=== PATIENT | male | born 1960 | race Caucasian/White ===

== ENCOUNTER 2017-12-21 20:11 | Emergency (ER) | payer SELFPAY ==
[2017-12-21] MEDS ORDERED: AMIODARONE HCL 150 MG in DEXTROSE 5%-WATER 100 ML IV ONE (20:19)
[2017-12-21] MEDS ORDERED: DEXTROSE 5%-WATER 500 ML with AMIODARONE HCL 900 MG IV PRN ×2 (20:28)
[2017-12-21 20:40] LABS: ABSOLUTE BASOPHILS # (AUTO) 0.1 10^3/uL (0.0-0.2); ABSOLUTE EOSINOPHILS # (AUTO) 0.1 10^3/uL (0.0-0.6); ABSOLUTE LYMPHOCYTES (AUTO) 2.7 10^3/uL (0.5-4.7); ABSOLUTE MONOCYTES (AUTO) 0.5 10^3/uL (0.1-1.4); ABSOLUTE NEUT (AUTO) 5.4 10^3/uL (1.7-8.2); BASOPHILS % (AUTO) 1.4 % (0-2); EOSINOPHILS % (AUTO) 0.9 % (0-6); HEMATOCRIT 49.4 % (37.9-51.0); LYMPHOCYTES % (AUTO) 30.3 % (13-45); MEAN CORPUSCULAR HEMOGLOBIN 29.8 pg (27.0-33.4); MEAN CORPUSCULAR HGB CONC 34.3 g/dL (32.0-36.0); MEAN CORPUSCULAR VOLUME 87 fl (80-97); MONOCYTES % (AUTO) 5.9 % (3-13); PLATELET COUNT 143 10^3/uL (150-450); RED BLOOD COUNT 5.69 10^6/uL (4.35-5.55); RED CELL DISTRIBUTION WIDTH 14.4 % (11.5-14.0); SEGMENTED NEUTROPHILS % (AUTO) 61.5 % (42-78); TOTAL CELLS COUNTED % (AUTO) 100 %; WHITE BLOOD COUNT 8.8 10^3/uL (4.0-10.5)
[2017-12-21] MEDS ORDERED: AMIODARONE HCL INJ 150 MG/3 ML VIAL IV PRN (20:47)
[2017-12-21 20:51] LABS: INTERNATIONAL RATION (INR) 0.87; PROTHROMBIN TIME 12.5 SEC (11.4-15.4)
[2017-12-21 20:54] LABS: ALANINE AMINOTRANSFERASE 58 U/L (21-72); ALBUMIN 4.3 g/dL (3.5-5.0); ALKALINE PHOSPHATASE 102 U/L (38-126); ANION GAP 13 (5-19); ASPARTATE AMINO TRANSFERASE 70 U/L (17-59); BILIRUBIN,DIRECT 0.5 mg/dL (0.0-0.4); BILIRUBIN,TOTAL 0.9 mg/dL (0.2-1.3); BLOOD UREA NITROGEN 13 mg/dL (7-20); CALCIUM 9.8 mg/dL (8.4-10.2); CARBON DIOXIDE 24 mmol/L (22-30); CHLORIDE 103 mmol/L (98-107); CREATINE KINASE 264 U/L (55-170); GLUCOSE 136 mg/dL (75-110); POTASSIUM 3.8 mmol/L (3.6-5.0); SODIUM 139.6 mmol/L (137-145); TOTAL PROTEIN 7.5 g/dL (6.3-8.2)
[2017-12-21 21:06] LABS: CREATINE KINASE MB 11.5 ng/mL (<4.55)
--- NOTE | 2017-12-21 21:08 | RADIOLOGY REPORT (SQ) ---
EXAM DESCRIPTION: CHEST SINGLE VIEW COMPLETED DATE/TIME: 12/21/2017 8:35 pm REASON FOR STUDY: cp COMPARISON: None. EXAM PARAMETERS: NUMBER OF VIEWS: One view. TECHNIQUE: Single frontal radiographic view of the chest acquired. RADIATION DOSE: NA LIMITATIONS: None. FINDINGS: LUNGS AND PLEURA: No opacities, masses or pneumothorax. No pleural effusion. MEDIASTINUM AND HILAR STRUCTURES: Age-appropriate contour. HEART AND VASCULAR STRUCTURES: Heart normal in size. Normal vasculature. BONES: No acute findings. HARDWARE: None in the chest. OTHER: No other significant finding. IMPRESSION: NO ACUTE RADIOGRAPHIC FINDING IN THE CHEST. TECHNICAL DOCUMENTATION: JOB ID: [id number] [place]-[id number] 2010 [email or web address]- All Rights Reserved Reading location - IP/workstation name: [email or web address]
[2017-12-21 21:10] LABS: TROPONIN I 0.288 ng/mL
[2017-12-21] MEDS ORDERED: METOPROLOL TARTRATE PF/INJ 5 MG/5 ML SDV IV ONE (21:14)
[2017-12-21] MEDS ORDERED: NITROGLYCERIN 2% OINTMENT 1 GM PACKET TP ONE (21:22)
[2017-12-21] MEDS ORDERED: AMIODARONE HCL INJ 150 MG/3 ML VIAL IV ONE ×2 (21:30→21:37)
[2017-12-21] MEDS ORDERED: CLOPIDOGREL BISULFATE 300 MG TABLET ONE (21:46)
[2017-12-21] MEDS ORDERED: ENOXAPARIN SODIUM INJ 120 MG/0.8 ML DISP.SYRIN SUBCUT SCH (22:15)
--- NOTE | 2017-12-21 22:25 | ER Document Report ---
ED General - General Chief Complaint: Chest Pain Stated Complaint: CHEST DISCOMFORT Time Seen by Provider: 12/21/17 20:19 Mode of Arrival: Stretcher Information source: Patient TRAVEL OUTSIDE OF THE [place] IN LAST 30 DAYS: No - HPI Patient complains to provider of: Chest pain Onset: This afternoon Onset/Duration: Gradual Quality of pain: Fullness - Chest no radiation shortness of breath and diaphoresis accompanied with Severity: Moderate Associated symptoms: Chest pain, Nausea, Shortness of breath, Sweating Exacerbated by: Denies Relieved by: Other - Nitro and aspirin without relief Recently seen / treated by doctor: No - Has not seen a physician in over a year Notes: 57-year-old male was doing yard work putting out patio whilst today when he became fatigued. He went into the house and stated shortly thereafter he developed chest pain and some shortness of breath and diaphoresis. He states he took an old nitro as well as aspirin without really any relief. He does have a history of coronary artery disease with a stent placed. He has not seen a physician over a year. His states since he moved here from [place] he has not gotten a doctor. Patient smokes at least a pack a day. No alcohol. - Related Data Allergies/Adverse Reactions: No Known Allergies Allergy (Unverified 12/21/17 20:29) Past Medical History - General Information source: Patient, Relative - - Social History Smoking Status: Current Every Day Smoker Chew tobacco use (# tins/day): No Frequency of alcohol use: None Drug Abuse: None Lives with: Family Family History: Hypertension Patient has suicidal ideation: No Patient has homicidal ideation: No - Past Medical History Cardiac Medical History: Reports: Hx Heart Attack - x2 99-03, Hx Hypertension Pulmonary Medical History: Reports: None EENT Medical History: Reports: None Neurological Medical History: Reports: None Endocrine Medical History: Reports: None Renal/ Medical History: Reports: None. Denies: Hx Peritoneal Dialysis Malignancy Medical History: Reports None GI Medical History: Reports: None Musculoskeltal Medical History: Reports None Skin Medical History: Reports None Psychiatric Medical History: Reports: None Past Surgical History: Reports: Hx Abdominal Surgery - hernia repair x3, diverticulitis, Hx Coronary Stent - Immunizations History of Influenza Vaccine for 07/2017 - 12/2017 Season: No Review of Systems - Review of Systems Constitutional: No symptoms reported EENT: No symptoms reported Cardiovascular: See HPI Respiratory: See HPI Gastrointestinal: See HPI Genitourinary: No symptoms reported Male Genitourinary: No symptoms reported Musculoskeletal: No symptoms reported Skin: No symptoms reported Hematologic/Lymphatic: No symptoms reported Neurological/Psychological: No symptoms reported Physical Exam - Vital signs Vitals: Resp Pulse Ox 29 H 98 12/21/17 20:13 12/21/17 20:13 - Notes Notes: PHYSICAL EXAMINATION: GENERAL: Pale, obese male in no acute distress HEAD: Atraumatic, normocephalic. EYES: Pupils equal round and reactive to light, extraocular movements intact, sclera anicteric, conjunctiva are normal. ENT: Nares patent, oropharynx clear without exudates. Moist mucous membranes. NECK: Normal range of motion, supple without lymphadenopathy LUNGS: Breath sounds clear to auscultation bilaterally and equal. No wheezes rales or rhonchi. HEART: Regular rate and rhythm without murmurs ABDOMEN: obese, soft, nontender, nondistended abdomen. No guarding, no rebound. No masses appreciated. Patient has a large area of scarring inferior to his umbilicus where he had multiple abdominal surgeries. Musculoskeletal: Normal range of motion, no pitting or edema. No cyanosis. NEUROLOGICAL: Cranial nerves grossly intact. Normal speech. Normal sensory, motor exams PSYCH: Normal mood, normal affect. SKIN: Warm, Dry, normal turgor, no rashes or lesions noted. Course - Re-evaluation Re-evalutation: The patient's arrival to the emergency department, female EMS worker approached and asked me to please go outside into the ambulance. After the ambulance the patient was sitting up mentating in the stretcher. The radiation monitor appeared to be V. tach. Patient's blood pressure was fine. There was an EMS worker in the truck. I did tell him that since the patient was mentating to just expediently transfer him into the emergency department. At that point he had given Cardizem. Upon arrival into the emergency department which was less than a minute later he did convert to sinus rhythm. 12/21/17 22:21 Called [facility] I call divided for transfer. There are no cardiac beds. I did call [facility]. I spoke to Josie and the transfer center coordinator. She stated she would have cardiology call me back. At that point I was called into the patient's room for heart rate of 212. Patient was in V. tach sitting up in the side of the bed. He looked pale grayish and mildly diaphoretic. He stated he was having chest pain. I did lay him back in the bed. He was given 150 mg IV bolus amiodarone. His heart rate went into a wide complex bigeminy. At that point I did give Lopressor 5 mg IV patient converted to sinus rhythm m at a rate of 86 bpm with T-wave inversions inferiorly and laterally no acute ST elevation. She was given Lovenox, Plavix, Nitropaste. He was accepted by Dr. Derek Jacinto who called me back. Patient's heart rate is now 74 his oxygenation is 100 on 2 L, blood pressure is 140/94. 12/21/17 22:29 12/21/17 22:30 Labs- All tests 24 hr 12/21/17 12/21/17 12/21/17 20:25 20:25 20:25 WBC 8.8 RBC 5.69 H Hgb 17.0 Hct 49.4 MCV 87 MCH 29.8 MCHC 34.3 RDW 14.4 H Plt Count 143 L Seg Neutrophils % 61.5 Lymphocytes % 30.3 Monocytes % 5.9 Eosinophils % 0.9 Basophils % 1.4 Absolute Neutrophils 5.4 Absolute Lymphocytes 2.7 Absolute Monocytes 0.5 Absolute Eosinophils 0.1 Absolute Basophils 0.1 PT 12.5 INR 0.87 Sodium 139.6 Potassium 3.8 Chloride 103 Carbon Dioxide 24 Anion Gap 13 BUN 13 Creatinine 0.90 Est GFR ( Amer) > 60 Est GFR (Non-Af Amer) > 60 Glucose 136 H Calcium 9.8 Magnesium 1.7 Total Bilirubin 0.9 Direct Bilirubin 0.5 H Neonat Total Bilirubin Not Reportable Neonat Direct Bilirubin Not Reportable Neonat Indirect Bili Not Reportable AST 70 H ALT 58 Alkaline Phosphatase 102 Creatine Kinase 264 H CK-MB (CK-2) Troponin I NT-Pro-B Natriuret Pep Total Protein 7.5 Albumin 4.3 12/21/17 20:25 WBC RBC Hgb Hct MCV MCH MCHC RDW Plt Count Seg Neutrophils % Lymphocytes % Monocytes % Eosinophils % Basophils % Absolute Neutrophils Absolute Lymphocytes Absolute Monocytes Absolute Eosinophils Absolute Basophils PT INR Sodium Potassium Chloride Carbon Dioxide Anion Gap BUN Creatinine Est GFR ( Amer) Est GFR (Non-Af Amer) Glucose Calcium Magnesium Total Bilirubin Direct Bilirubin Neonat Total Bilirubin Neonat Direct Bilirubin Neonat Indirect Bili AST ALT Alkaline Phosphatase Creatine Kinase CK-MB (CK-2) 11.50 H Troponin I 0.288 NT-Pro-B Natriuret Pep 512 Total Protein Albumin Chest X-Ray 12/21/17 20:20 IMPRESSION: NO ACUTE RADIOGRAPHIC FINDING IN THE CHEST. - Vital Signs Vital signs: Temp Pulse Resp BP Pulse Ox 97.7 F 21 H 140/94 H 95 12/21/17 20:30 12/21/17 22:01 12/21/17 22:01 12/21/17 22:01 - Laboratory Result Diagrams: 12/21/17 20:25 12/21/17 20:25 Laboratory results interpreted by me: 12/21/17 12/21/17 12/21/17 20:25 20:25 20:25 RBC 5.69 H RDW 14.4 H Plt Count 143 L Glucose 136 H Direct Bilirubin 0.5 H AST 70 H Creatine Kinase 264 H CK-MB (CK-2) 11.50 H - Diagnostic Test Radiology reviewed: Image reviewed, Reports reviewed - EKG Interpretation by Fl EKG shows normal: Sinus rhythm - [address] elevations or depressions. There is T-wave inversions inferior laterally When compared to previous EKG there are: Previous EKG unavailable Additional EKG results interpreted by me: 12/21/17 22:31 Patient had an EKG at 2143 which showed a rate of 200 with tachycardia wide- complex bigeminy EKG at 2144 showed sinus rhythm at a rate of 86 T-wave inversions inferior laterally no acute ST elevations or depressions Discharge - Discharge Clinical Impression: Non-ST elevated myocardial infarction, V-tach, Tobacco abuse, Obesity (BMI 30.0 -34.9), Medical non-compliance Condition: Critical Disposition: [facility]
[2017-12-21 22:54] VITALS: BP 160/102
--- NOTE | 2017-12-22 10:16 | EKG REPORT ---
SEVERITY:- ABNORMAL ECG - EXTREME TACHYCARDIA WITH WIDE COMPLEX, NO FURTHER RHYTHM ANALYSIS ATTEMPTED : Confirmed by: Toan Langley 22-Dec-2017 10:16:12
--- NOTE | 2017-12-22 10:16 | EKG REPORT ---
SEVERITY:- ABNORMAL ECG - SINUS RHYTHM [place], CONSIDER BIATRIAL ABNORMALITIES LATERAL INFARCT, AGE INDETERMINATE : Confirmed by: Toan Langley 22-Dec-2017 10:15:26
--- NOTE | 2017-12-22 10:17 | EKG REPORT ---
SEVERITY:- ABNORMAL ECG - SINUS RHYTHM BORDERLINE R WAVE PROGRESSION, ANTERIOR LEADS REPOL ABNRM SUGGESTS ISCHEMIA, ANT-LAT LEADS : Confirmed by: Toan Langley 22-Dec-2017 10:16:27
== END 2017-12-21 23:00 | disposition short-term general hospital (02) ==
LOC: ER 20:11
DX: I21.4 Non-ST elevation (NSTEMI) myocardial infarction (principal); I47.2 Ventricular tachycardia; F17.200 Nicotine dependence, unspecified, uncomplicated; E66.9 Obesity, unspecified; R07.9 Chest pain, unspecified; R53.83 Other fatigue; Z68.30 Body mass index [BMI] 30.0-30.9, adult; Z91.19 Patient's noncompliance with other medical treatment and regimen
CPT/HCPCS: 93005; 99285; 96372; 96375; 96365; 96366; 36415; 82553; 82550; 83735; 85025; 85610; 80053; 84484; 83880; 71045; 93010; J3490 ×2; J0282